=== PATIENT | female | born 1995 | race Caucasian/White ===

== ENCOUNTER 2017-04-13 10:40 | Emergency (ER) | payer OTHER ==
[2017-04-13 13:15] VITALS: BP 126/69
--- NOTE | 2017-04-13 13:45 | UC ---
Skin Complaint HPI - HPI Summary HPI Summary: Pt presents with c/o gradual onset of burning, painful erythematous area to left lateral trunk/hip. Pt denies injury or caustic contact. P treports area was quarter size and is now 6 cm in diameter. Pt sates it is warm and tender and "burning" to touch. - History of Current Complaint Chief Complaint: UCSkin Time Seen by Provider: 04/13/17 13:08 Stated Complaint: SKIN COMPLAINT Hx Obtained From: Patient Hx Last Menstrual Period: 04/02/17 ?: No Onset/Duration: Gradual Onset, Lasting Days, Still Present, Worse Since - onset Skin Exposure Onset/Duration: Days Ago Timing: Constant Onset Severity: Mild Current Severity: Moderate Pain Intensity: 5 Location: Discrete Character: Pruritus, Pain, Redness Aggravating Factor(s): Touch Alleviating Factor(s): Unknown Associated Signs & Symptoms: Positive: Rash, Tenderness - Allergy/Home Medications Allergies/Adverse Reactions: Allergies Allergy/AdvReac Type Severity Reaction Status Date / Time No Known Allergies Allergy Verified 04/13/17 13:12 Review of Systems Constitutional: Negative Skin: Rash Eyes: Negative ENT: Negative Respiratory: Negative Cardiovascular: Negative Gastrointestinal: Negative Genitourinary: Negative Motor: Negative Neurovascular: Negative Musculoskeletal: Negative Neurological: Negative Psychological: Negative Is Patient Immunocompromised?: No All Other Systems Reviewed And Are Negative: Yes PMH/Surg Hx/FS Hx/Imm Hx Previously Healthy: Yes Other History Of: Negative For: HIV, Hepatitis B, Hepatitis C, Anticoagulant Therapy - Surgical History Surgical History: Yes Surgery Procedure, Year, and Place: [facility] Lt SHOULDER - Family History Known Family History: Positive: Cardiac Disease, Diabetes Negative: Hypertension - Social History Occupation: Employed Full-time Lives: With Family Alcohol Use: Rare Substance Use Type: None Smoking Status (MU): Never Smoked Tobacco Have You Smoked in the Last Year: No - Immunization History Vaccination Up to Date: Yes Physical Exam Triage Information Reviewed: Yes Appearance: Well-Appearing Vital Signs: Initial Vital Signs Temp 97.4 F 04/13/17 13:10 Pulse 76 04/13/17 13:10 Resp 16 04/13/17 13:10 BP 126/69 04/13/17 13:10 Pulse Ox 100 04/13/17 13:10 Eye Exam: Normal ENT Exam: Normal Dental Exam: Normal Neck exam: Normal Respiratory: Positive: No respiratory distress Musculoskeletal Exam: Normal Neurological Exam: Normal Psychological Exam: Normal Skin Exam: Other - erythematous, tender, slightly, raised, confluent area that is tender to touch and pt states "cruz" when touched. Course/Dx - Differential Diagnoses - Skin Complaint Differential Diagnoses: Cellulitis, Contact Dermatitis, Varicella Zoster, Other - sepsis, TSS - Diagnoses Provider Diagnoses: varicella zoster. Discharge - Discharge Plan Condition: Stable Disposition: HOME Prescriptions: Cetirizine* [ZyrTEC 10 MG TAB*] 10 mg PO DAILY #10 tab ValACYclovir (*) [Valtrex 1 GM(*)] 1 gm PO Q12H #14 tab Patient Education Materials: Shingles (ED) Forms: *Work Release Referrals: [facility] [place] [facility] [Outside] No Primary Care Phys,NOPCP [Primary Care Provider] - Additional Instructions: Shingles without Rash: Zoster sine herpete (i.e., zoster, the virus, without the herpes blisters), in which nerves are affected without the usual rash associated with shingles. In this case, the nerve involvement causes pain and extreme sensitivity, but the rash just never shows up.
== END 2017-04-13 13:56 | disposition home or self-care (01) ==
LOC: UCCORT 10:40
DX: B02.9 Zoster without complications (principal)
CPT/HCPCS: 99212; G0463

== ENCOUNTER 2017-09-21 16:24 | Emergency (ER) | payer OTHER ==
[2017-09-21 16:41] VITALS: BP 125/76
--- NOTE | 2017-09-21 16:53 | ED ---
Abdominal Pain/Female - HPI Summary HPI Summary: 22 yo WM c/o sudden lower abd pain x 1-2 days, denies f/c/n/v/d , menses started 2 days ago but pain is not like her usual period pains, denies dysuria, frequency and urgency of urination - History of Current Complaint Chief Complaint: UCAbdominalPain Stated Complaint: LOWER ABD PAIN Time Seen by Provider: 09/21/17 16:46 Hx Obtained From: Patient Hx Last Menstrual Period: 09/19/17 Onset/Duration: Sudden Onset, Lasting Days Timing: Hours Severity Initially: Moderate Severity Currently: Moderate Pain Intensity: 6 Allergies/Adverse Reactions: Allergies Allergy/AdvReac Type Severity Reaction Status Date / Time No Known Allergies Allergy Verified 09/21/17 16:33 Home Medications: Home Medications Norgestrel-Ethinyl Estradiol [Yct-[id number]-93 Tablet] 1 each PO DAILY 09/21/17 [ History Confirmed 09/21/17] PMH/Surg Hx/FS Hx/Imm Hx Previously Healthy: Yes Endocrine/Hematology History: Denies: Hx Anticoagulant Therapy, Hx Diabetes, Hx Thyroid Disease Cardiovascular History: Denies: Hx Congestive Heart Failure, Hx Deep Vein Thrombosis, Hx Hypertension , Hx Myocardial Infarction, Hx Pacemaker/ICD Respiratory History: Denies: Hx Asthma, Hx Chronic Obstructive Pulmonary Disease (COPD), Hx Lung Cancer, Hx Pneumonia, Hx Pulmonary Embolism GI History: Denies: Hx Gall Bladder Disease, Hx Gastrointestinal Bleed, Hx Ulcer, Hx Urosepsis History: Denies: Hx Kidney Stones, Hx Renal Disease Musculoskeletal History: Denies: Hx Rheumatoid Arthritis, Hx Osteoporosis Sensory History: Denies: Hx Hearing Aid Neurological History: Denies: Hx Dementia, Hx Migraine, Hx Seizures, Hx Transient Ischemic Attacks (TIA) Psychiatric History: Denies: Hx Anxiety, Hx Depression, Hx Panic Disorder, Hx Schizophrenia, Hx Bipolar Disorder - Surgical History Surgery Procedure, Year, and Place: [facility]. Lt SHOULDER Infectious Disease History: No Infectious Disease History: Denies: Traveled Outside the [place] in Last 30 Days - Family History Known Family History: Positive: Cardiac Disease, Diabetes Negative: Hypertension - Social History Alcohol Use: None Substance Use Type: Reports: None Smoking Status (MU): Never Smoked Tobacco Have You Smoked in the Last Year: No Review of Systems Constitutional: Negative Negative: Fever, Chills Eyes: Negative ENT: Negative Cardiovascular: Negative Respiratory: Negative Positive: Abdominal Pain. Negative: Vomiting, Diarrhea, Nausea Genitourinary: Negative Musculoskeletal: Negative Skin: Negative Neurological: Negative Psychological: Normal All Other Systems Reviewed And Are Negative: Yes Physical Exam - Summary Physical Exam Summary: Vital Signs Reviewed: Yes Appearance: Positive: Well-Appearing Skin: Positive: Warm Head/Face: Positive: Normal Head/Face Inspection Eyes: Positive: Normal, EOMI, SANDY ENT: Positive: Normal ENT inspection Neck: Positive: Supple Respiratory/Lung Sounds: Positive: Clear to Auscultation Cardiovascular: Positive: Normal, RRR, S1, S2 Abdomen Description: Positive:RLQ tenderness, moderate, over Mcburney's point, mild rebound, no guarding Musculoskeletal: Positive: Normal Neurological: Positive: CN Intact II-XII Psychiatric: Positive: Normal Triage Information Reviewed: Yes Vital Signs On Initial Exam: Initial Vitals Temp Pulse Resp BP Pulse Ox 36.6 C 77 16 125/76 100 09/21/17 16:34 09/21/17 16:34 09/21/17 16:34 09/21/17 16:34 09/21/17 16:34 Diagnostics - Vital Signs Vital Signs Temp Pulse Resp BP Pulse Ox 09/21/17 16:34 36.6 C 77 16 125/76 100 - Laboratory Lab Statement: Any lab studies that have been ordered have been reviewed, and results considered in the medical decision making process. Abdominal Pain Fem Course/Dx - Course Course Of Treatment: Advised to go to ER to r/o appendicitis - Diagnoses Provider Diagnoses: Abdominal pain, RLQ Discharge - Sign-Out/Discharge Documenting (check all that apply): Patient Departure - Discharge Plan Condition: Stable Disposition: HOME Patient Education Materials: Acute Abdominal Pain (ED) Referrals: Danielle Schreiber MD [Primary Care Provider] - Additional Instructions: GO TO ER NOW to make sure to check it is not appendicitis - Billing Disposition and Condition Condition: STABLE Disposition: Home
== END 2017-09-21 16:58 | disposition home or self-care (01) ==
LOC: UCCORT 16:24
DX: R10.31 Right lower quadrant pain (principal)
CPT/HCPCS: 81003; 99212; G0463

== ENCOUNTER 2017-11-10 17:45 | Emergency (ER) | payer OTHER ==
[2017-11-10 18:13] VITALS: BP 115/62
--- NOTE | 2017-11-10 18:35 | UC ---
Skin Complaint HPI - HPI Summary HPI Summary: Pt presents with sudden onset of pruritic, raised rash on abdomen. just below bellybutton Pt denies known contact with known allergen. Pt states that rash is raised, pin prick and pruritic. - History of Current Complaint Chief Complaint: UCSkin Time Seen by Provider: 11/10/17 18:28 Stated Complaint: RASH Hx Obtained From: Patient Hx Last Menstrual Period: 11/06/17 ?: No Onset/Duration: Sudden Onset, Lasting Days, Still Present, Worse Since - onset Skin Exposure Onset/Duration: Days Ago Timing: Constant Onset Severity: Mild Pain Intensity: 0 Location: Discrete Character: Pruritus, Redness, Raised Aggravating Factor(s): Touch Alleviating Factor(s): Unknown Associated Signs & Symptoms: Positive: Rash - Allergy/Home Medications Allergies/Adverse Reactions: Allergies Allergy/AdvReac Type Severity Reaction Status Date / Time No Known Allergies Allergy Verified 09/21/17 16:33 Review of Systems Constitutional: Negative Skin: Rash Eyes: Negative ENT: Negative Respiratory: Negative Cardiovascular: Negative Gastrointestinal: Negative Genitourinary: Negative Motor: Negative Neurovascular: Negative Musculoskeletal: Negative Neurological: Negative Psychological: Negative Is Patient Immunocompromised?: No All Other Systems Reviewed And Are Negative: Yes PMH/Surg Hx/FS Hx/Imm Hx Previously Healthy: Yes Other History Of: Negative For: HIV, Hepatitis B, Hepatitis C, Anticoagulant Therapy - Surgical History Surgical History: Yes Surgery Procedure, Year, and Place: [facility] Lt SHOULDER - Family History Known Family History: Positive: Cardiac Disease, Diabetes Negative: Hypertension - Social History Occupation: Student Lives: With Family Alcohol Use: Occasionally Substance Use Type: None Smoking Status (MU): Never Smoked Tobacco Have You Smoked in the Last Year: No - Immunization History Vaccination Up to Date: Yes Physical Exam Triage Information Reviewed: Yes Appearance: Well-Appearing Vital Signs: Initial Vital Signs Temp 98.4 F 11/10/17 18:08 Pulse 82 11/10/17 18:08 Resp 16 11/10/17 18:08 BP 115/62 11/10/17 18:08 Pulse Ox 100 11/10/17 18:08 Vital Signs Reviewed: Yes Eye Exam: Normal ENT: Positive: Hearing grossly normal Dental Exam: Normal Neck exam: Normal Respiratory: Positive: No respiratory distress Abdominal Exam: Other - erythematous rash just below bellybutton Musculoskeletal Exam: Normal Neurological Exam: Normal Psychological Exam: Normal Skin: Positive: rashes - erythematous, pinprick, linear and scattered. slightly raised. Course/Dx - Differential Diagnoses - Skin Complaint Differential Diagnoses: Contact Dermatitis, Scabies - Diagnoses Provider Diagnoses: scabies. contact dermatitis Discharge - Sign-Out/Discharge Documenting (check all that apply): Patient Departure All imaging exams completed and their final reports reviewed: No Studies - Discharge Plan Condition: Stable Disposition: HOME Prescriptions: Permethrin 5% CREAM* 1 applic TOPICAL SEE INSTRUCTIONS #1 tube Patient Education Materials: Antihistamine (By mouth), Scabies (ED) Referrals: Danielle Schreiber MD [Primary Care Provider] - If Needed - Billing Disposition and Condition Condition: STABLE Disposition: Home
== END 2017-11-10 18:41 | disposition home or self-care (01) ==
LOC: UCCORT 17:45
DX: B86 Scabies (principal); L25.9 Unspecified contact dermatitis, unspecified cause
CPT/HCPCS: 99212; G0463

== ENCOUNTER 2018-03-09 12:05 | Emergency (ER) | payer OTHER ==
[2018-03-09 13:39] VITALS: BP 113/62
--- NOTE | 2018-03-09 13:58 | UC ---
Respiratory Complaint HPI - HPI Summary HPI Summary: cough x 4 days cough is productive, yellow sputum no nasal congestion, no pnd, no sore throat, no fever, no chills no wheezing - History of Current Complaint Chief Complaint: UCRespiratory Stated Complaint: COUGH,CHEST CONGESTION Time Seen by Provider: 03/09/18 13:51 Hx Obtained From: Patient Hx Last Menstrual Period: 03/01/18 ?: No Onset/Duration: Gradual Onset, Lasting Days - 4, Still Present Timing: Constant Severity Initially: Moderate Severity Currently: Moderate Pain Intensity: 5 Character: Cough: Productive Aggravating Factors: Exertion, Deep Breaths Alleviating Factors: Nothing Associated Signs And Symptoms: Negative: Dyspnea, Fever, Chills, Wheezing, Hemoptysis, Dizziness, Calf Pain, Calf Swelling, URI, Nasal Congestion, Hoarseness, Sinus Discomfort - Allergies/Home Medications Allergies/Adverse Reactions: Allergies Allergy/AdvReac Type Severity Reaction Status Date / Time No Known Allergies Allergy Verified 03/09/18 13:30 Home Medications: Home Medications Dextromethorphn/Acetaminoph/Cp [Vicks Nyquil Cold & Flu N] 1 liq PO PRN [History] PMH/Surg Hx/FS Hx/Imm Hx - Additional Past Medical History Additional PMH: POTS SYNDROME Cardiovascular History: Cardiac Disease Other History Of: Negative For: HIV, Hepatitis B, Hepatitis C, Anticoagulant Therapy - Surgical History Surgical History: Yes Surgery Procedure, Year, and Place: [facility] Lt [facility] - Family History Known Family History: Positive: Cardiac Disease, Diabetes Negative: Hypertension - Social History Alcohol Use: Occasionally Substance Use Type: None Smoking Status (MU): Never Smoked Tobacco Have You Smoked in the Last Year: No - Immunization History Vaccination Up to Date: Yes Review of Systems All Other Systems Reviewed And Are Negative: Yes Constitutional: Positive: Negative Skin: Positive: Negative Eyes: Positive: Negative ENT: Positive: Negative Respiratory: Positive: Cough Cardiovascular: Positive: Negative Is Patient Immunocompromised?: No Physical Exam Triage Information Reviewed: Yes Appearance: Well-Appearing, No Pain Distress, Obese Vital Signs: Initial Vital Signs Temp 98.3 F 03/09/18 13:31 Pulse 87 03/09/18 13:31 Resp 16 03/09/18 13:31 BP 113/62 03/09/18 13:31 Pulse Ox 100 03/09/18 13:31 Vital Signs Reviewed: Yes Eye Exam: Normal Eyes: Positive: Conjunctiva Clear ENT: Positive: Normal ENT inspection, Hearing grossly normal, Pharynx normal Neck exam: Normal Neck: Positive: Supple, Nontender, No Lymphadenopathy Respiratory: Positive: Chest non-tender, Lungs clear, Normal breath sounds Cardiovascular: Positive: RRR, No Murmur, Pulses Normal, Brisk Capillary Refill Abdominal Exam: Normal Abdomen Description: Positive: Nontender, Soft Skin Exam: Normal UC Diagnostic Evaluation - Laboratory O2 Sat by Pulse Oximetry: 100 Respiratory Course/Dx - Differential Dx/Diagnosis Provider Diagnosis: Bronchitis Discharge - Sign-Out/Discharge Documenting (check all that apply): Patient Departure All imaging exams completed and their final reports reviewed: No Studies - Discharge Plan Condition: Stable Disposition: HOME Patient Education Materials: Acute Bronchitis (ED) Referrals: Ama Interiano PA [Primary Care Provider] - If Needed Additional Instructions: viral bronchitis no need for antibiotics - Billing Disposition and Condition Condition: STABLE Disposition: Home
== END 2018-03-09 14:02 | disposition home or self-care (01) ==
LOC: UCCORT 12:05
DX: J40 Bronchitis, not specified as acute or chronic (principal)
CPT/HCPCS: 99211; G0463

== ENCOUNTER 2019-04-29 19:45 | Emergency (ER) | payer OTHER ==
--- OUTSIDE RECORDS SUMMARY | 2019-04-29 19:52 | XMS REPORT | Continuity of Care Document ---
:1995 External Reference #:[id number] Author Name LUPE Walton (transmitted by agent of provider Tatiana Silverio) Address [address] [place] [address] Care Team Providers Name Role Phone Ama Interiano RPA - Medical Care Team Information Meter Engineer Kimberly Garza MD - Neurology Care Team Information Meter Engineer [phone] Tatum Hughes MD - Gastroenterology Care Team Information Meter Engineer [phone] Problems Active Problems Provider Date Transient altered mental status Anna Fall M.D. Onset: 10/10/2016 Note: complex migraine? Postural orthostatic tachycardia syndrome LUPE Walton Onset: 2018 Headache LUPE Walton Onset: 07/01/2018 Elevated C-reactive protein LUPE Walton Onset: 06/29/2018 Note: noted 2018 Obesity LUPE Walton Onset: 07/01/2018 Social History Type Date Description Comments Sex Unknown Tobacco Use Start: Unknown Never Smoked Cigarettes ETOH Use Current Alcohol Use Socially Recreational Drug Use Denies Drug Use Tobacco Use Start: Unknown Patient has never smoked Smoking Status Reviewed: 03/04/19 Patient has never smoked Exercise Type/Frequency Exercises regularly Allergies, Adverse Reactions, Alerts Description No Known Drug Allergies Medications Active Medications SIG Qnty Indications Ordering Date Provider Ibuprofen 2 tabs by mouth Simeon 03/04/2019 200mg every 6 hours as MD Raimro Capsules needed Anusol-HC 1 suppository per 12units K62.5 Simeon 03/04/2019 25mg rectum twice a day MD Ramiro Suppository as needed Low-Ogestrel 1 by mouth every 28tabs Simeon 06/28/2018 erin Rubio MD 0.3-30mg-mcg Tablets Immunizations CPT Code Status Date Vaccine Reaction Lot # [id number] Given 07/19/2014 Meningococcal Immunization 38244 Given 07/19/2014 Tdap - Tetanus/Diptheria/Acellular Pertussis 89599 Given 10/10/2011 Hepatitis A Vaccine Pediatric/Adolescent Dosage 2 Dose Schedule 69202 Given 10/08/2010 Hepatitis A Vaccine Pediatric/Adolescent Dosage 2 Dose Schedule 96235 Given 05/08/2010 Measles Mumps And Rubella MMR 63093 Given 06/09/2008 Gardasil (HPV) 12652 Given 03/09/2008 Gardasil (HPV) 29109 Given 11/22/2007 Meningococcal Immunization 32779 Given 11/22/2007 Tdap - Tetanus/Diptheria/Acellular Pertussis 07146 Given 11/22/2007 Gardasil (HPV) 85322 Given 03/22/2001 IPV/Poliomyelitis Immunization 62783 Given 03/22/2001 Measles Mumps And Rubella MMR 70801 Given 06/27/1998 DTaP Vaccine Younger Than 7 infanrix 06843 Given 06/27/1998 Hib PRP-T Conjugate 4 Dose Schedule 97459 Given 09/08/1997 Hib PRP-T Conjugate 4 Dose Schedule 64454 Given 09/08/1997 DTaP Vaccine Younger Than 7 infanrix 66813 Given 1997 Measles Mumps And Rubella MMR 47004 Given 1996 Hep B Pediatric/Adolescent comvax 54457 Given 1996 IPV/Poliomyelitis Immunization 91825 Given 1996 DTaP Vaccine Younger Than 7 infanrix 31803 Given 1996 Hib PRP-T Conjugate 4 Dose Schedule 07584 Given 1996 IPV/Poliomyelitis Immunization 94876 Given 1996 DTaP Vaccine Younger Than 7 pentacel 30310 Given 1996 Hib PRP-T Conjugate 4 Dose Schedule 81033 Given 1996 IPV/Poliomyelitis Immunization 61768 Given 1996 DTaP Vaccine Younger Than 7 pentacel 01777 Given 1996 Hib PRP-T Conjugate 4 Dose Schedule 05951 Given 1996 Hep B Pediatric/Adolescent 57748 Given 1996 Hep B Pediatric/Adolescent Vital Signs Date Vital Result Comment 03/04/2019 9:55am Height 67 inches 5'7" Weight 241.56 lb Heart Rate 86 /min BP Systolic Sitting 122 mmHg BP Diastolic Sitting 80 mmHg O2 % BldC Oximetry 98 % BMI (Body Mass Index) 37.8 kg/m2 08/18/2018 9:26am Height 67 inches 5'7" Weight 230.12 lb Heart Rate 101 /min BP Systolic 108 mmHg BP Diastolic 80 mmHg O2 % BldC Oximetry 95 % BMI (Body Mass Index) 36.0 kg/m2 Results Description No Information Available Procedures Description No Information Available Medical Devices Description No Information Available Encounters Description No Information Available Assessments Date Code Description Provider 03/04/2019 K62.5 Hemorrhage of anus and rectum LUPE Walton 03/04/2019 K59.4 Anal spasm LUPE Walton Plan of Treatment 03/04/2019 - Ama Interiano, PAK62.5 Hemorrhage of anus and rectumNew Medication:Anusol-HC 25 mg - 1 suppository per rectum twice a day as neededComments:Painless rectal bleedingReferral:Tatum Hughes MD, [email or web address] Anal spasmComments:From description Functional Status Description No Information Available Mental Status Description No Information Available Referrals Refer to Reason for Referral Status Appt Date Tatum Hughes MD Recurring painless rectal bleeding Created [address] [place] [address] [phone]
--- OUTSIDE RECORDS SUMMARY | 2019-04-29 19:52 | XMS REPORT | Summary of Care ---
:1995 Author Organization [facility] Address [address] [facility] [place] [address] Care Team Providers Name Role Phone None, [place] Primary Care Provider Unavailable Reason for Visit Reason Comments Follow-up Follow-up to recent colonoscopy. Encounter Details Date Type Department Care Team Description 04/04/2019 Office Visit Humberto Smith, Encounter to discuss colonoscopy results (Primary Dx); Gastroenterology/Hepa Daisy Ponce NP Internal hemorrhoids tology [address] [facility] [address] [facility] [place] [address] [place] [address] [phone] Allergies No Known Allergiesdocumented as of this encounter (statuses as of 04/04/2019) Medications Medication Sig Dispensed Refills Start Date End Date Status Ibuprofen (MOTRIN Take 1 Tab 0 Active PO) by mouth NEEDED. Norgestimate-Ethin Take 1 Tab 0 Active yl Estradiol by mouth. (ORTHO TRI-CYCLEN, 28,) 0.18/0.215/0.25 MG-35 MCG Oral Tab polyethylene Take 17 g 238 g 0 03/17/2019 04/04/2019 Discontinued glycol (MIRALAX) by mouth (Error) Oral Powder DIRECTED. Bisacodyl Take 4 Tabs 4 Tab 0 03/17/2019 04/04/2019 Discontinued (DULCOLAX) 5 MG by mouth (Error) Oral Tab EC DIRECTED. simethicone Take 1 Tab 2 Tab 0 03/17/2019 04/04/2019 Discontinued (GENASYME, by mouth (Error) MYLICON) 80 MG DIRECTED. Oral Chew Tab documented as of this encounter (statuses as of 04/04/2019) Active Problems Problem Noted Date Abdominal pain 10/19/2017 Liver mass 10/19/2017 Hemangioma 10/19/2017 S/P surgery for recurrent dislocation of shoulder 03/26/2016 Left shoulder pain 02/13/2016 documented as of this encounter (statuses as of 04/04/2019) Social History Tobacco Use Types Packs/Day Years Used Date Never Smoker Smokeless Tobacco: Never Used Alcohol Use Drinks/Week oz/Week Comments Yes ocassionally Sex Assigned at Date Recorded Not on file Job Start Date Occupation Industry Not on file Not on file Not on file Travel History Travel Start Travel End No recent travel history available. documented as of this encounter Last Filed Vital Signs Vital Sign Reading Time Taken Comments Blood Pressure 122/74 04/04/2019 3:05 PM EST Pulse 66 04/04/2019 3:05 PM EST Temperature 36.4 04/04/2019 3:05 PM EST C (97.6 F) Respiratory Rate - - Oxygen Saturation - - Inhaled Oxygen Concentration - - Weight 109.8 kg (242 lb) 04/04/2019 3:05 PM EST Height 170.2 cm (5' 7") 04/04/2019 3:05 PM EST Body Mass Index 37.9 04/04/2019 3:05 PM EST documented in this encounter Patient Instructions Patient InstructionsDaisy Smith NP - 04/04/2019 3:00 PM EST1. Allow for toilet time as discussed 2. See information regarding hemorrhoids Patient Education Hemorrhoids Discharge Instructions About this topic Hemorrhoids are swollen blood vessels. They are either inside or outside the anus. Pressure from straining when you have hard stools can cause them. They may hurt, bleed, or itch. You might need to have surgery to get rid of hemorrhoids. What care is needed at home? Ask your doctor what you need to do when you go home. Make sure you ask questions if you do notunderstand what the doctor says. This way you will know what you need to do. Apply creams or ointments as ordered by your doctor. Talk with your doctor about sitz baths. Sit in 2 to 3 inches (5 to 7.5 cm) of warm water in thetub for 10 to 15 minutes each time. Do this 3 to 4 times a day. Carefully wipe your bottom afterwards. Use ice to help with swelling. Move your bowels as soon as you feel the urge. Use a stool softener. Do not strain, bear down, or hold your breath during a bowel movement. Do not sit on the toilet for long periods of time. Avoid heavy lifting for 2 or 3 weeks. Use baby wipes or other moist wipes instead of toilet tissue. Wear cotton underwear. It may help with itching. What follow-up care is needed? If your problem does not get better, other care may be needed. Your doctor may ask you to make visits to the office to check on your progress. Be sure to keep these visits. What drugs may be needed? The doctor may order drugs to: Help with pain and swelling Ease itching Soften stools Will physical activity be limited? Working out can help with digestion. It might help keep you from having hard stools. Ask your doctor about the best kind of exercise for you. What problems could happen? You may have very bad bleeding. Sometimes, treatments do not work. Some hemorrhoids are very large. You might need surgery for either of these. What can be done to prevent this health problem? Drink 6 to 8 glasses of fluids each day. Eat lots of high-fiber foods like fruits, vegetables, beans, and whole grains. Work out often. Do not smoke or drink beer, wine, and mixed drinks (alcohol). Talk to your doctor about when you can return to work and your normal level of activity. Check with your doctor about fiber supplements. When do I need to call the doctor? Signs of a very bad reaction. These include bleeding or you lose a lot of blood, you feel dizzy, lightheaded, or faint. Go to the ER right away. Signs of infection. This includes fever of 100.4F (38C) or higher, chills, anal itchingor pain. Pain gets worse and is not helped by drugs, warm water, or your home care Trouble and pain when passing urine or no bowel movement for a few days Blood in the rectum You are not feeling better in 2 to 3 days or you are feeling worse Teach Back: Helping You Understand The Teach Back Method helps you understand the information we are giving you. After you talk with the staff, tell them in your own words what you learned. This helps to make sure the staff has described each thing clearly. It also helps to explain things that may have been confusing. Before going home, make sure you can do these: I can tell you about my condition. I can tell you what may help ease my pain. I can tell you what I will do if I have blood in my rectum. Where can I learn more? [place] [employer] https://[email or web address]/hemorrhoids/ National Digestive Disease Information Clearinghouse https://www.niddk.nih.gov/health-information/digestive-diseases/hemorrhoids/ definition-facts Last Reviewed Date 2018-11-11 Consumer Information Use and Disclaimer This information is not specific medical advice and does not replace information you receive from your health care provider. This is only a brief summary of general information. It does NOT include allinformation about conditions, illnesses, injuries, tests, procedures, treatments, therapies, discharge instructions or life-style choices that may apply to you. You must talk with your health care provider for complete information about your health and treatment options. This information should not beused to decide whether or not to accept your health care providers advice, instructions or recommendations. Only your health care provider has the knowledge and training to provide advice that isright for you. Copyright Copyright 2019 [employer]arlene [employer] and its affiliates and/or licensors. All rights reserved. documented in this encounter Progress Notes Daisy Smith NP - 04/04/2019 3:00 PM EST PATIENT: Lam Powell : 1995 DATE OF SERVICE: 04/04/2019 REFERRING PRACTITIONER: Ama Interiano PRIMARY CARE PROVIDER: None, [place] CHIEF COMPLAINT: Chief Complaint Patient presents with Follow-up Follow-up to recent colonoscopy. Subjective HISTORY OF PRESENT ILLNESS: Lam Powell is a 23-y.o. female who presents for follow-up of recent colonoscopy which was unremarkable with exception of small internal hemorrhoids. She also presents with a new complaint of fecal urgency after eating at a restaurant. She reports this has happened twice now, resulting in fecal incontinence on the drive home. \\ Denies abdominal pain,heartburn, dysphagia, fatigue, nausea, vomiting, melena, hamatemesis, hematochezia, constipation, diarrhea, jaundice, fevers, chills, night sweats, weight loss, easy bruising, chest pain, shortness of breath, dysuria, hematuria, pyuria, joint pains, acholic stools, dark urine or systemic pruritis. Current Outpatient Medications Medication Sig Ibuprofen (MOTRIN PO) Take 1 Tab by mouth NEEDED. Norgestimate-Ethinyl Estradiol (ORTHO TRI-CYCLEN, 28,) 0.18/0.215/0.25 MG -35 MCG Oral Tab Take 1 Tab by mouth. No current facility-administered medications for this visit. No Known Allergies REVIEW OF SYSTEMS: All remaining review of systems was negative except for as noted in the history of present illness/subjective. Objective PHYSICAL EXAMINATION: VITALS: BP 122/74 | Pulse 66 | Temp 97.6 F (36.4 C) | Ht 5' 7" ( 1.702 m) | Wt 242 lb (109.8 kg) | BMI 37.90 kg/m Body mass index is 37.9 kg/m. GENERAL: alert, oriented, no acute distress. HEENT: No scleral icterus, MMM Psych: Affect normal Extrmities: no edema Skin: clear Neuro: gait normal, a&o x 3 RECTAL: exam deferred. IMPRESSION: ICD-9-CM ICD-10-CM 1. Encounter to discuss colonoscopy results V65.49 Z71.2 2. Internal hemorrhoids 455.0 K64.8 Plan PLAN: Patient Instructions 1. Allow for toilet time as discussed 2. See information regarding hemorrhoids Patient Education Hemorrhoids Discharge Instructions About this topic Hemorrhoids are swollen blood vessels. They are either inside or outside the anus. Pressure from straining when you have hard stools can cause them. They may hurt, bleed, or itch. You might need to have surgery to get rid of hemorrhoids. What care is needed at home? Ask your doctor what you need to do when you go home. Make sure you ask questions if you do notunderstand what the doctor says. This way you will know what you need to do. Apply creams or ointments as ordered by your doctor. Talk with your doctor about sitz baths. Sit in 2 to 3 inches (5 to 7.5 cm) of warm water in thetub for 10 to 15 minutes each time. Do this 3 to 4 times a day. Carefully wipe your bottom afterwards. Use ice to help with swelling. Move your bowels as soon as you feel the urge. Use a stool softener. Do not strain, bear down, or hold your breath during a bowel movement. Do not sit on the toilet for long periods of time. Avoid heavy lifting for 2 or 3 weeks. Use baby wipes or other moist wipes instead of toilet tissue. Wear cotton underwear. It may help with itching. What follow-up care is needed? If your problem does not get better, other care may be needed. Your doctor may ask you to make visits to the office to check on your progress. Be sure to keep these visits. What drugs may be needed? The doctor may order drugs to: Help with pain and swelling Ease itching Soften stools Will physical activity be limited? Working out can help with digestion. It might help keep you from having hard stools. Ask your doctor about the best kind of exercise for you. What problems could happen? You may have very bad bleeding. Sometimes, treatments do not work. Some hemorrhoids are very large. You might need surgery for either of these. What can be done to prevent this health problem? Drink 6 to 8 glasses of fluids each day. Eat lots of high-fiber foods like fruits, vegetables, beans, and whole grains. Work out often. Do not smoke or drink beer, wine, and mixed drinks (alcohol). Talk to your doctor about when you can return to work and your normal level of activity. Check with your doctor about fiber supplements. When do I need to call the doctor? Signs of a very bad reaction. These include bleeding or you lose a lot of blood, you feel dizzy, lightheaded, or faint. Go to the ER right away. Signs of infection. This includes fever of 100.4F (38C) or higher, chills, anal itchingor pain. Pain gets worse and is not helped by drugs, warm water, or your home care Trouble and pain when passing urine or no bowel movement for a few days Blood in the rectum You are not feeling better in 2 to 3 days or you are feeling worse Teach Back: Helping You Understand The Teach Back Method helps you understand the information we are giving you. After you talk with the staff, tell them in your own words what you learned. This helps to make sure the staff has described each thing clearly. It also helps to explain things that may have been confusing. Before going home, make sure you can do these: I can tell you about my condition. I can tell you what may help ease my pain. I can tell you what I will do if I have blood in my rectum. Where can I learn more? [place] [employer] https://familydoctor.org/condition/hemorrhoids/ National Digestive Disease Information Clearinghouse https://www.niddk.nih.gov/health-information/digestive-diseases/hemorrhoids/ definition-facts Last Reviewed Date 2018-11-11 Consumer Information Use and Disclaimer This information is not specific medical advice and does not replace information you receive from your health care provider. This is only a brief summary of general information. It does NOT include allinformation about conditions, illnesses, injuries, tests, procedures, treatments, therapies, discharge instructions or life-style choices that may apply to you. You must talk with your health care provider for complete information about your health and treatment options. This information should not beused to decide whether or not to accept your health care providers advice, instructions or recommendations. Only your health care provider has the knowledge and training to provide advice that isright for you. Copyright Copyright 2019 [employer]arlene [employer] and its affiliates and/or licensors. All rights reserved. Author: Daisy Smith NP 04/04/2019 15:39 documented in this encounter Plan of Treatment Health Maintenance Due Date Last Done Comments CHLAMYDIA SCREENING 1995 DTaP/Tdap/Td Vaccines (1 - Tdap) 06/27/2007 HPV IMMUNIZATION SERIES (1 - Female 06/27/2007 2-dose series) DEPRESSION SCREENING 2008 HIV SCREENING 06/27/2011 PAP SMEAR 2017 INFLUENZA VACCINE (#1) 2018 HEPATITIS A IMMUNIZATION SERIES Aged Out No longer eligible based on patient's age to complete this topic MENINGOCOCCAL VACCINE IMM Aged Out No longer eligible based on patient's age to complete this topic PNEUMOCOCCAL 0-64 YRS Aged Out No longer eligible based on patient's age to complete this topic documented as of this encounter Results Not on filedocumented in this encounter Visit Diagnoses Diagnosis Encounter to discuss colonoscopy results Other specified counseling Internal hemorrhoids Internal hemorrhoids without mention of complication documented in this encounter Insurance Payer Benefit Plan / Subscriber ID Effective Dates Phone Address Type Group LIFETIME LIFETIME BENEFIT xxxxxxxxxxxx 2015-[id number] Guarantor Name Account Type Relation to Date of Phone Billing Patient Address Dejan Powell Personal/Family 1995 [address] [facility] a (Home) [place] [phone] [id number] (Work) documented as of this encounter
--- OUTSIDE RECORDS SUMMARY | 2019-04-29 19:52 | XMS REPORT | Summary of Care ---
:1995 Author Organization [facility] Address [address] [facility] [place] [address] Care Team Providers Name Role Phone Danika Beltrán MD Primary Care Provider Reason for Referral Refer to Department Only (Routine) Status Reason Specialty Diagnoses / Referred By Referred To Procedures Contact Contact Pending GASTROENTEROLOGY / Diagnoses Bright red rectal bleeding Humberto Smith Review Gastroenterology Daisy Ponce NP Gastroenterol 1 [address] ogy/[place] [address] [address] [facility] Phone: Road [phone] [place], [place] Fax: [phone] Scheduling Instructions BP 112/78 | Pulse 66 | Temp 97.1 F (36.2 C) | Ht 5' 7" (1.702 m) | Wt 236 lb (107 kg) | BMI 36.96 kg/m BMI Readings from Last 4 Encounters: 03/17/19 : 36.96 kg/m 03/07/19 : 37.83 kg/m 01/12/18 : 32.41 kg/m 12/17/17 : 31.54 kg/m Controlled Substance Medications: Anticoagulant Medications: Psychiatric/Antianxiety Medications: Antiretroviral Medications: Reason for Visit Reason Comments Rectal Bleeding Pt. referred by her PCP for rectal bleeding. Encounter Details Date Type Department Care Team Description 03/17/2019 Office Visit [place], Bright red rectal Gastroenterology/Hepa Daisy Ponce NP bleeding (Primary Dx) tology [address] [facility] [address] [place] [address] [place] [address] [phone] Allergies No Known Allergiesdocumented as of this encounter (statuses as of 03/17/2019) Medications Medication Sig Dispensed Refills Start Date End Date Status Ibuprofen (MOTRIN Take 1 Tab 0 Active PO) by mouth NEEDED. Norgestimate-Ethin Take 1 Tab 0 Active yl Estradiol by mouth. (ORTHO TRI-CYCLEN, 28,) 0.18/0.215/0.25 MG-35 MCG Oral Tab polyethylene Take 17 g 238 g 0 03/17/2019 Active glycol (MIRALAX) by mouth Oral Powder DIRECTED. Bisacodyl Take 4 Tabs 4 Tab 0 03/17/2019 Active (DULCOLAX) 5 MG by mouth Oral Tab EC DIRECTED. simethicone Take 1 Tab 2 Tab 0 03/17/2019 Active (GENASYME, by mouth MYLICON) 80 MG DIRECTED. Oral Chew Tab nabumetone Take 500 mg 0 03/17/2019 Discontinued (RELAFEN) 500 MG by mouth (Error) Oral Tab TWICE DAILY. documented as of this encounter (statuses as of 03/17/2019) Active Problems Problem Noted Date Abdominal pain 10/19/2017 Liver mass 10/19/2017 Hemangioma 10/19/2017 S/P surgery for recurrent dislocation of shoulder 03/26/2016 Left shoulder pain 02/13/2016 documented as of this encounter (statuses as of 03/17/2019) Social History Tobacco Use Types Packs/Day Years [...] Sign Reading Time Taken Comments Blood Pressure 112/78 03/17/2019 9:47 AM EST Pulse 66 03/17/2019 9:47 AM EST Temperature 36.2 03/17/2019 9:47 AM EST C (97.1 F) Respiratory Rate - - Oxygen Saturation - - Inhaled Oxygen Concentration - - Weight 107 kg (236 lb) 03/17/2019 9:47 AM EST Height 170.2 cm (5' 7") 03/17/2019 9:47 AM EST Body Mass Index 36.96 03/17/2019 9:47 AM EST documented in this encounter Patient Instructions Patient InstructionsDaisy Smith NP - 03/17/2019 9:40 AM EST1. Schedule colonoscopy here in [place] 2. Follow up as needed after the above If you have not already been screened for Hepatitis C we would be happy to do that for you today. Currently we recommend screening for hepatitis C virus (HCV ) infection in persons at high risk for infection, and to adults born between 1945 and 1965. Thank you for choosing the [place] [facility] for your needs today! -aDisy Smith N.P. , Please call if you need to cancel or change your appt. time. Thank you for choosing [facility] for your health care needs, and for consulting with [facility] today. You may receive a survey following this visit, or after an upcoming hospital stay. As easy as it is to feel overloaded with surveys, we are required to send them out randomly and they do provide important feedback so that we may serve your needs in the best way. Please do take the few minutes required to complete the survey if you receive one. We get them too, after seeing the doctor, and they only take a few minutes to complete. Patient Education Irritable Bowel Syndrome The Basics Written by the doctors and editors at [facility] What is irritable bowel syndrome?Irritable bowel syndrome, or "IBS ," is a condition that causes belly pain and problems with bowel movements. Some people with the condition have frequent,watery bowel movements (diarrhea). Others do not have enough bowel movements (constipation). Some patients switch back and forth between diarrhea and constipation. What are the symptoms of IBS?Symptoms include: Stomach pain and cramps, related to a bowel movement Diarrhea or constipation (some people switch back and forth between diarrhea and constipation) Bloating Gas Is there a test for IBS?No, there is no specific test. But your doctor or nurse can figure out if you have IBS by asking you a few questions, and by running tests to make sure you do not have something other than IBS. Lots of medical conditions can cause the same symptoms as IBS. So it is important that your doctor or nurse checks the other possibilities. What can I do to feel better?You can: Start a diary to keep track of what you ate each day, what you did, and how you felt. That way,you can figure out if anything you do or eat makes your symptoms better or worse. Stop eating foods that might be making your IBS worse. Start by giving up foods that give you gas, and then give up milk, ice cream, and other foods that have traces of milk for 2 weeks. Ask your doctor or nurse for advice on which foods can make IBS worse. Eat more fiber, if you have constipation. You can do this by eating more fruits and vegetables.Or you can take fiber pills or powders. (If eating more fiber makes symptoms worse, cut back on the fiber.) Exercise. Do something active for 20 to 60 minutes, 3 to 5 days a week. Studies show this helpsimprove IBS symptoms. How is IBS treated?Medicines can ease the symptoms of IBS. But no treatment can cure the condition. Counseling might also help with IBS, because stress and worry can make the condition worse. The medicines that can help with IBS symptoms include: Medicines to ease diarrhea Medicines to ease constipation Antidepressants These medicines work by blocking pain. When used to treat IBS, they are given at a much lower dose than would normally be given to treat depression. Medicines called "antispasmodics" Antibiotics These medicines sometimes help with bloating and diarrhea in some people. What will my life be like?Most people with IBS have the condition for the rest of their life. Even so, most people find ways to improve their symptoms. The merlos is to keep working with your doctor or nurse until the two of you find an approach that works. All topics are updated as new evidence becomes available and our peer review process is complete. This topic retrieved from [employer] on: Jan 04, 2019. Topic 74101 Version 6.0 Release: 27.4.5 - C27.318 2019[employer]. and/or its affiliates.All rights reserved. Consumer Information Use and Disclaimer This information [...] or not to accept your health care provider's advice, instructions or recommendations. Only your health care provider has the knowledge and training to provide advice that is right for you.The use of [employer] content is governed by the [employer] Terms of Use. 2019 [employer]. All rights reserved. Copyright 2019[employer]. and/or its affiliates.All rights reserved. documented in this encounter Progress Notes Daisy Smith NP - 03/17/2019 9:40 AM EST PATIENT: Lam Powell : 1995 DATE OF SERVICE: 03/17/2019 REFERRING PRACTITIONER: Ama Interiano PRIMARY CARE PROVIDER: Danika Beltrán CHIEF COMPLAINT: Chief Complaint Patient presents with Rectal Bleeding Pt. referred by her PCP for rectal bleeding. Subjective HISTORY OF PRESENT ILLNESS: Lam Powell is a 23-y.o. female who presents for a consultation. She reports abdominal pain, diarrhea/constipation cycles, and intermittent bright red blood per rectum. Defecation occurs 1 time(s) every 3 days and is described as being loose. Pain location: Suprapubic and radiates into her back, has also had intermittent rectal pain. Pain quality: sharp. Onset was problem is longstanding, this episode began several weeks ago. Symptoms have been intermittent. Aggravated by: none. Alleviated by: bowel movements. Associated symptoms: Bright red blood with BMs Psychosocial factors: the symptoms are not directly linked to stress, but occur against a highly stressful background. She is completing college and planning her wedding. The patient denies anemia, anorexia, arthralgias, belching, bloating, chills, dysuria, fever, flatus, frequency, headache, hematemesis, hematuria, malnutrition, melena, myalgias, nausea, sweats, vomiting and weight loss. Past Medical History: Diagnosis Date POTS (postural orthostatic tachycardia syndrome) Past Surgical History: Procedure Laterality Date NM SHLDR ARTHROSCOP,SURG,CAPSULORRHAPHY Left 03/13/2016 Procedure: ARTHROSCOPY, SHOULDER ,LEFT CAPSULAR PLICATION. ; Surgeon: Que Valle MD; Location:[facility] OR SHOULDER ARTHROSCOPY Left Dr. Valle LS CAPSULAR PLICATION 03/13/16 History reviewed. No pertinent family history. Current Outpatient Medications Medication Sig Bisacodyl (DULCOLAX) 5 MG Oral Tab EC Take 4 Tabs by mouth DIRECTED. Ibuprofen (MOTRIN PO) Take 1 Tab by mouth NEEDED. Norgestimate-Ethinyl Estradiol (ORTHO TRI-CYCLEN, 28,) 0.18/0.215/0.25 MG -35 MCG Oral Tab Take 1 Tab by mouth. polyethylene glycol (MIRALAX) Oral Powder Take 17 g by mouth DIRECTED. simethicone (GENASYME, MYLICON) 80 MG Oral Chew Tab Take 1 Tab by mouth DIRECTED. No current facility-administered medications for this visit. No Known Allergies Social History Socioeconomic History Marital status: Single Spouse name: Not on file Number of children: Not on file Years of education: Not on file Highest education level: Not on file Occupational History Not on file Social Needs Financial resource strain: Not on file Food insecurity Worry: Not on file Inability: Not on file Transportation needs Medical: Not on file Non-medical: Not on file Tobacco Use Smoking status: Never Smoker Smokeless tobacco: Never Used Substance and Sexual Activity Alcohol use: Yes Comment: ocassionally Drug use: No Sexual activity: Yes Partners: Male control/protection: Pill Lifestyle Physical activity Days per week: Not on file Minutes per session: Not on file Stress: Not on file Relationships Social connections Talks on phone: Not on file Gets together: Not on file Attends islam service: Not on file Active member of club or organization: Not on file Attends meetings of clubs or organizations: Not on file Relationship status: Not on file Intimate partner violence Fear of current or ex partner: Not on file Emotionally abused: Not on file Physically abused: Not on file Forced sexual activity: Not on file Other Topics Concern Not on file Social History Narrative Not on file REVIEW OF SYSTEMS: All remaining review of systems was negative except for as noted in the history of present illness/subjective. Objective PHYSICAL EXAMINATION: VITALS: BP 112/78 | Pulse 66 | Temp 97.1 F (36.2 C) | Ht 5' 7" ( 1.702 m) | Wt 236 lb (107 kg) | BMI 36.96 kg/m Body mass index is 36.96 kg/m. GENERAL: alert, oriented, no acute distress. HEENT: No scleral icterus, MMM Psych: Affect normal Neck: no lymphadenopathy LUNGS: clear to auscultation bilaterally. HEART: regular rhythm, no murmurs, no gallops, no rubs. ABDOMEN: general exam: soft, non-tender, non-distended, without masses or organomegaly, normal active bowel sounds, Stevens's sign negative. Extrmities: no edema Skin: clear Neuro: gait normal, a&o x 3 RECTAL: exam deferred. Plan IMPRESSION/PLAN: ICD-9-CM ICD-10-CM 1. Bright red rectal bleeding 569.3 K62.5 REFER TO GI COLONOSCOPY Patient Instructions 1. Schedule colonoscopy here in [place] 2. Follow up as needed after the above If you have not already been screened for Hepatitis C we would be happy to do that for you today. Currently we recommend screening for hepatitis C virus (HCV ) infection in persons at high risk for infection, and to adults born between 1945 and 1965. Thank you for choosing the [place] [facility] for your needs today! -Daisy Smith N.P. , Please call if you need to cancel or change your appt. time. Thank you for choosing [facility] for your health care needs, and for consulting with [facility] today. You may receive a survey following this visit, or after an upcoming hospital stay. As easy as it is to feel overloaded with surveys, we are required to send them out randomly and they do provide important feedback so that we may serve your needs in the best way. Please do take the few minutes required to complete the survey if you receive one. We get them too, after seeing the doctor, and they only take a few minutes to complete. Patient Education Irritable Bowel Syndrome The Basics Written by the doctors and editors at [facility] What is irritable bowel syndrome?Irritable bowel syndrome, or "IBS ," is a condition that causes belly pain and problems with bowel movements. Some people with the condition have frequent,watery bowel movements (diarrhea). Others do not have enough bowel movements (constipation). Some patients switch back and forth between diarrhea and constipation. What are the symptoms of IBS?Symptoms include: Stomach pain and cramps, related to a bowel movement Diarrhea or constipation (some people switch back and forth between diarrhea and constipation) Bloating Gas Is there a test for IBS?No, there is no specific test. But your doctor or nurse can figure out if you have IBS by asking you a few questions, and by running tests to make sure you do not have something other than IBS. Lots of medical conditions can cause the same symptoms as IBS. So it is important that your doctor or nurse checks the other possibilities. What can I do to feel better?You can: Start a diary to keep track of what you ate each day, what you did, and how you felt. That way,you can figure out if anything you do or eat makes your symptoms better or worse. Stop eating foods that might be making your IBS worse. Start by giving up foods that give you gas, and then give up milk, ice cream, and other foods that have traces of milk for 2 weeks. Ask your doctor or nurse for advice on which foods can make IBS worse. Eat more fiber, if you have constipation. You can do this by eating more fruits and vegetables.Or you can take fiber pills or powders. (If eating more fiber makes symptoms worse, cut back on the fiber.) Exercise. Do something active for 20 to 60 minutes, 3 to 5 days a week. Studies show this helpsimprove IBS symptoms. How is IBS treated?Medicines can ease the symptoms of IBS. But no treatment can cure the condition. Counseling might also help with IBS, because stress and worry can make the condition worse. The medicines that can help with IBS symptoms include: Medicines to ease diarrhea Medicines to ease constipation Antidepressants These medicines work by blocking pain. When used to treat IBS, they are given at a much lower dose than would normally be given to treat depression. Medicines called "antispasmodics" Antibiotics These medicines sometimes help with bloating and diarrhea in some people. What will my life be like?Most people with IBS have the condition for the rest of their life. Even so, most people find ways to improve their symptoms. The merlos is to keep working with your doctor or nurse until the two of you find an approach that works. All topics are updated as new evidence becomes available and our peer review process is complete. This topic retrieved from [employer] on: Jan 04, 2019. Topic 67897 Version 6.0 Release: 27.4.5 - C27.318 [employer] and/or its affiliates.All rights reserved. Consumer Information Use and Disclaimer This information [...] or not to accept your health care provider's advice, instructions or recommendations. Only your health care provider has the knowledge and training to provide advice that is right for you.The use of [employer] content is governed by the [employer] Terms of Use. 2019 [employer]. All rights reserved. Copyright 2019[employer] and/or its affiliates.All rights reserved. Author: Daisy Smith NP 03/17/2019 10:13 documented in this encounter Plan of Treatment Name Type Priority Associated Diagnoses Order Schedule COLONOSCOPY Diagnostic/Surgical Routine Bright red rectal Ordered: 2019 Procedures bleeding Name Type Priority Associated Diagnoses Order Schedule REFER TO GI Referral Routine Bright red rectal bleeding Expected: 2019, Expires: 03/17/2020 Health Maintenance Due Date Last Done Comments [...] filedocumented in this encounter Visit Diagnoses Diagnosis Bright red rectal bleeding Hemorrhage of rectum and anus documented in this encounter Insurance Payer Benefit Plan / Subscriber ID Effective Dates Phone Address Type Group LIFETIME LIFETIME BENEFIT xxxxxxxxxxxx 2015-[employer] Guarantor Name Account Type Relation to Date of Phone Billing Patient Address Dejan Powell Personal/Family 1995 [address] (Home) [place], [place] [phone] [id number] (Work) documented as of this encounter
[2019-04-29 20:23] VITALS: BP 124/71
--- NOTE | 2019-04-29 20:52 | UC ---
Skin Complaint HPI - HPI Summary HPI Summary: Pt presents with c/o of itching, burning rash that pt states she has had for ~ 1 week. - History of Current Complaint Chief Complaint: UCRash Time Seen by Provider: 04/29/19 20:47 Stated Complaint: SKIN COMPLAINT Hx Obtained From: Patient Hx Last Menstrual Period: 04/11/19 ?: No Onset/Duration: Sudden Onset, Lasting Days, Still Present Skin Exposure Onset/Duration: Days Ago Timing: Constant Onset Severity: Mild Current Severity: Mild Pain Intensity: 0 Location: Discrete - upper back Character: Pruritus, Redness, Raised, Painful Aggravating Factor(s): Touch Alleviating Factor(s): Nothing Associated Signs & Symptoms: Positive: Rash - Allergy/Home Medications Allergies/Adverse Reactions: Allergies Allergy/AdvReac Type Severity Reaction Status Date / Time No Known Allergies Allergy Verified 04/29/19 20:23 Home Medications: Home Medications Norgestrel-Ethinyl Estradiol [Ehu-Zurtgcoc-05 Tablet] 1 each PO DAILY 09/21/17 [ History Confirmed 04/29/19] ValACYclovir (*) [Valtrex 1 GM(*)] 1 gm PO Q12H #14 tab 04/29/19 [Rx] predniSONE 10 mg TAB [Deltasone 10 MG TAB*] 30 mg PO DAILY #12 tab 04/29/19 [Rx] PMH/Surg Hx/FS Hx/Imm Hx - Additional Past Medical History Additional PMH: Pt has hx of chicken pox Previously Healthy: Yes Other History Of: Negative For: HIV, Hepatitis B, Hepatitis C, Anticoagulant Therapy - Surgical History Surgical History: Yes Surgery Procedure, Year, and Place: [facility]. Lt SHOULDER - Family History Known Family History: Positive: Cardiac Disease, Diabetes Negative: Hypertension - Social History Occupation: Employed Full-time Lives: With Family Alcohol Use: Occasionally Substance Use Type: None Smoking Status (MU): Never Smoked Tobacco Have You Smoked in the Last Year: No - Immunization History Vaccination Up to Date: Yes Review of Systems All Other Systems Reviewed And Are Negative: Yes Constitutional: Positive: Negative Skin: Positive: Rash - upper back Eyes: Positive: Negative ENT: Positive: Negative Respiratory: Positive: Negative Cardiovascular: Positive: Negative Gastrointestinal: Positive: Negative Genitourinary: Positive: Negative Motor: Positive: Negative Neurovascular: Positive: Negative Musculoskeletal: Positive: Negative Neurological/Mental Status: Positive: Negative Psychological: Positive: Negative Is Patient Immunocompromised?: No Physical Exam Triage Information Reviewed: Yes Appearance: Well-Appearing Vital Signs: Initial Vital Signs Temp 98.2 F 04/29/19 20:19 Pulse 80 04/29/19 20:19 Resp 14 04/29/19 20:19 BP 124/71 04/29/19 20:19 Pulse Ox 100 04/29/19 20:19 Vital Signs Reviewed: Yes Eye Exam: Normal ENT: Positive: Hearing grossly normal Dental Exam: Normal Neck exam: Normal Respiratory: Positive: No respiratory distress Musculoskeletal Exam: Normal Neurological Exam: Normal Psychological Exam: Normal Skin: Positive: Rashes - right side medial upper back, cluster of vessicles intact, mild erythema, pt c/o burning feeling with palpation Course/Dx - Differential Diagnoses - Skin Complaint Differential Diagnoses: Cellulitis, Contact Dermatitis, Varicella Zoster - Diagnoses Provider Diagnosis: Shingles rash Discharge ED - Sign-Out/Discharge Documenting (check all that apply): Patient Departure All imaging exams completed and their final reports reviewed: No Studies - Discharge Plan Condition: Stable Disposition: HOME Prescriptions: predniSONE 10 mg TAB [Deltasone 10 MG TAB*] 30 mg PO DAILY #12 tab ValACYclovir (*) [Valtrex 1 GM(*)] 1 gm PO Q12H #14 tab Patient Education Materials: Shingles (ED) Referrals: Ama Interiano PA [Primary Care Provider] - If Needed - Billing Disposition and Condition Condition: STABLE Disposition: Home
== END 2019-04-29 21:00 | disposition home or self-care (01) ==
LOC: UCCORT 19:45
DX: B02.9 Zoster without complications (principal)
CPT/HCPCS: 99212; G0463